=== PATIENT | female | born 1995 | race Asian ===

== ENCOUNTER 2020-10-19 19:00 | Emergency (ER) | payer OTHER ==
[~2020-10-19] VITALS: Ht 160 cm; Wt 88.5 kg
[2020-10-19 19:13] VITALS: BP 129/90
--- NOTE | 2020-10-19 19:13 | NUR ---
to bed # 12 ambulatory
--- NOTE | 2020-10-19 19:55 | NUR ---
Patient discharged with v/s stable. Written and verbal after care instructions given and explained. Patient alert, oriented and verbalized understanding of instructions. Ambulatory with steady gait. All questions addressed prior to discharge. ID band removed. Patient advised to follow up with PMD. Rx of ofloxacin and naprosyn given. Patient educated on indication of medication including possible reaction and side effects. Opportunity to ask questions provided and answered.
[2020-10-19] MEDS ORDERED: KETOROLAC 30 MG/ML VIAL IM ONE (20:00)
== END 2020-10-19 19:55 | disposition home or self-care (01) ==
LOC: MED 19:00
DX: H60.92 Unspecified otitis externa, left ear (principal); Z88.1 Allergy status to other antibiotic agents
CPT/HCPCS: 96372; 99283; J1885